=== PATIENT | male | born 1975 | race Caucasian/White ===

== ENCOUNTER 2025-02-21 15:39 | Emergency (ER) | payer MEDICAID ==
[2025-02-21 15:57] VITALS: PULSE 96; RESP 20; TEMP 97
--- NOTE | 2025-02-21 16:07 | ERPHSYRPT ---
- History of Present Illness Time Seen by Provider: 02/21/25 15:44 Source: patient, EMS Patient Subjective Stated Complaint: PT HERE FOR BEE STING TODAY WHILE PUSH MOWING, HE STATES HE IMMEDIATELY TOOK BENDADRYL 50MG, STATES BEED STING TO BACK OF NECK Triage Nursing Assessment: PT ARRIVED PER EMS, ALERT, NO DISTRESS NOTED, HAS REDNESS TO BACK OF NECK, NO SWELLING, RESP EASY, SKIN W/D/P. IV TO LEFT ARM, MOVES ALL EXT WELL Physician History: This is a 49-year-old male who was stung by a hornet over 1 hour ago prior to my evaluation brought in by EMS because he was concerned that has a history of allergic reactions. He states in the past stung by bees he has trouble breathing. Patient took 2 Benadryl immediately after being stung on the back right side of his neck. He has had no shortness of breath. No rash. He has had no typical allergic symptoms. No difficulty breathing or swallowing. Patient is a heavy smoker. Has history of asthma. No wheezing. EMS his vital signs been stable saturations 195% on room air. Allergies/Adverse Reactions: No Known Drug Allergies Allergy (Unverified 02/21/25 15:57) Hx Tetanus, Diphtheria Vaccination/Date Given: No Hx Influenza Vaccination/Date Given: No Hx Pneumococcal Vaccination/Date Given: No Immunizations Up to Date: Yes Travel Risk - International Travel Have you traveled outside of the country in past 3 weeks: No - Emerging Infectious Disease Are you exhibiting symptoms associated with any current EIDs: No - Review of Systems All Other Systems: Reviewed and Negative (As per HPI otherwise negative) - Past Medical History Pertinent Past Medical History: Yes Cardiac History: Hypertension Endocrine Medical History: Diabetes Type II Psycho-Social History: Anxiety, Depression - Past Surgical History Past Surgical History: Yes - Social History Smoking Status: Never smoker Exposure to second hand smoke: No Drug Use: none - Social Determinants of Health Will the patient participate in the screening: Yes Do you worry about a steady place to live?: Yes Do you have any problems with any of the following?: No known problems In the past 12 months,have you had to go without utilities?: No Transportation Issues: Yes Has anyone in your support network made you feel unsafe?: No Have you or anyone in your house had to go w/o enough food: No - Nursing Vital Signs Nursing Vital Signs: Initial Vital Signs Temperature 97.0 F 02/21/25 15:50 Pulse Rate 96 H 02/21/25 15:50 Respiratory Rate 20 02/21/25 15:50 Blood Pressure 114/73 02/21/25 15:50 O2 Sat by Pulse Oximetry 94 L 02/21/25 15:50 Pain Scale Pain Intensity 2 - Physical Exam SpO2: 94 Comments: 02/21/25 16:09 General: Well-nourished well-developed. No apparent distress. Shuffled. Self- admitted history of alcoholism. Clean and sober for 2 days. HEENT: Normocephalic atraumatic no obvious facial or neck deformity or injury. Neck: Supple. No deformity or mass noted. CV: RRR NL Perfusion. No edema Resp: No Respiratory distress or adventitious breath sounds Abd: ND SNT Pigment: No rash. No lesion. No evidence of swelling or difficulty at site of where he was "bit" MSK: No deformity or TTP Neuro: Alert and Edison x4. No gross focal neurologic changes Psych: No SI, HI or grave disability Ordered Tests: Medication Summary Discontinued Medications Generic Name Dose Route Start Last Admin Trade Name Freq PRN Reason Stop Dose Admin Methylprednisolone Sodium 0 mg 02/21/25 16:07 Succinate 125 mg/ Sterile IV 02/21/25 16:08 Water 2 ml STAT ONE - Progress Progress: improved Progress Note: 02/21/25 16:09 Patient fully asymptomatic time evaluation 1 hour and 10 minutes after his "bite" from the hornet. Patient took Benadryl. Has he has an IV already per EMS will give 125 mg of Solu-Medrol. Although I do not feel patient needs at this time this will be given prophylactically. Certain conditions can change or worsen and we have discussed this. He asked for an EpiPen in case he has an allergic reaction I feel this is reasonable. I will also write him for prednisone and Benadryl. The patient's condition was discussed with themselves and/or family members in great detail. Precautions are given and need to return or call 911 immediately for any changes or worsening are discussed. Instructions on patient's condition and noting that conditions can change or worsen and that diagnosis are presumptive and can evolve are discussed. All questions were answered. All concerns addressed at this time - Departure Departure Disposition: Home Clinical Impression: Insect bite Qualifiers: Encounter type: initial encounter Site of insect bite: other part of neck Qualified Code(s): S10.86XA - Insect bite of other specified part of neck, in itial encounter; W57.XXXA - Bitten or stung by nonvenomous insect and other nonvenomous arthropods, initial encounter Condition: Stable Critical Care Time: No Instructions: Insect Bites and Stings (DC) Additional Instructions: You have been evaluated for an emergency medical condition. At this time, given the current history and events presented, the examination conducted and any possible testing you may have had, you have been given a presumptive diagnosis based on the current information is obtained. Your discharge diagnosis is presumptive and not necessarily definitive. Medical conditions present in various stages very often without all the symptoms or findings described in medical literature. Other symptoms, concerns or conditions may arise and your diagnoses may evolve or change and/or your condition could potentially worsen after the time of disposition or discharge. You have been given a presumptive diagnosis and your condition appears to be stable, but your medical issues can change or worsen. If there is worsening of your condition including difficulty breathing, s wallowing, speaking, chest pain or pressure, intractable vomiting, worsening or changing mental status, numbness, tingling or weakness of your body or arms or legs, thoughts or plans of harming yourself or others, or any other concerns, call 911 and/or return immediately to the closest emergency department. It is important you follow-up with your doctor on the next business day. Call your doctor, or the referral provided if you do not have a doctor, when they open to schedule a follow-up appointment in the next 1 or latest 2 days. Please refer to the attached sheet. If you do not have primary care doctor, you can call the [facility] referral line at [phone]. Return immediately if your symptoms worsen or if you are unable to obtain further care. My team and I thank you for choosing the [facility] Emergency Department emergency healthcare needs. We wish you a speedy recovery. Very respectfully, Dr. Geri Edwards M.D. [employer] Board-certified Emergency Physician Prescriptions: Diphenhydramine HCl 25 mg [Benadryl 25 mg Capsule] 50 mg PO Q8H PRN 5 Days #30 PRN Reason: Allergies Prednisone 20 mg [Deltasone 20 mg] 40 mg PO DAILY 5 Days #10 tablet EPINEPHrine [Epipen 2-Kvng] 0.3 mg IJ PER HOUR PRN #1 kit PRN Reason: Allergies
[2025-02-21] MEDS ORDERED: Sterile H2O 10 ml IJ ONE (16:36)
[2025-02-21] MEDS: solu-MEDROL 125 MG, Sterile H2O 10 ml 2 ML IV ONE (16:38)
[2025-02-21 17:07] VITALS: BP 102/72; O2SAT 93
== END 2025-02-21 17:13 | disposition home or self-care (01) ==
LOC: ED 15:39
DX: S10.86XA Insect bite of other specified part of neck, initial encounter (principal); W57.XXXA Bitten or stung by nonvenomous insect and other nonvenomous arthropods, initial encounter; Y93.H2 Activity, gardening and landscaping; Y92.007 Garden or yard of unspecified non-institutional (private) residence as the place of occurrence of the external cause; I10 Essential (primary) hypertension; E11.9 Type 2 diabetes mellitus without complications; Z79.52 Long term (current) use of systemic steroids; Z79.899 Other long term (current) drug therapy; Z59.819 Housing instability, housed unspecified; Z59.82 Transportation insecurity

== ENCOUNTER 2025-02-27 15:04 | Emergency (ER) | payer MEDICAID ==
[2025-02-27 15:17] VITALS: RESP 18; TEMP 98.1
--- NOTE | 2025-02-27 15:26 | ERPHSYRPT ---
- History of Present Illness Physician History: Insect sting, Transported via EMS, the patient was out mowing grass when he was stung by a hornet, he states they came out of the ground and stung him in the left foot, he came very sweaty he did not have any shortness of breath he denied having difficulty swallowing, apparently after calling EMS he was given a dose of epinephrine, he has known history of allergies to bee stings, At the time examination he states having a reaction on his left foot, no other rash in any other location, he feels a bit tired Allergies/Adverse Reactions: No Known Drug Allergies Allergy (Unverified 02/21/25 15:57) Home Medications: Aspirin EC 81 mg [Ecotrin 81 mg] 81 mg PO DAILY 02/27/25 [History] Atorvastatin Calcium 10 mg PO HS 02/27/25 [History] Celecoxib [Celebrex] 200 mg PO DAILY 02/27/25 [History] Epinephrine Epi-Pen [Epipen 0.3 MG Syringe] 0.3 mg IM DAILY PRN PRN 02/27/25 [History] Escitalopram Oxalate [Lexapro] 20 mg PO DAILY 02/27/25 [History] Ferrous Sulfate, Dried [Slow Release Iron] 45 mg PO DAILY 02/27/25 [History] Gabapentin 300 mg PO QID 02/27/25 [History] Hydrochlorothiazide 25 mg [hydroDIURIL 25 MG] 25 mg PO DAILY 02/27/25 [History] Lisinopril 10 mg [Zestril 10 MG] 10 mg PO DAILY 02/27/25 [History] Metformin HCl 500 mg [Glucophage 500 MG] 500 mg PO BIDWM 02/27/25 [History] Multivitamin 1 tab PO DAILY 02/27/25 [History] PANTOPRAZOLE 40 mg Tablet [Protonix 40MG Tablet] 40 mg PO QAM 02/27/25 [H istory] Ropinirole HCl 1 mg PO BID 02/27/25 [History] predniSONE [Prednisone] 20 mg PO DAILY 02/27/25 [History] Hx Tetanus, Diphtheria Vaccination/Date Given: No Hx Influenza Vaccination/Date Given: No Hx Pneumococcal Vaccination/Date Given: No Travel Risk - Emerging Infectious Disease Are you exhibiting symptoms associated with any current EIDs: No - Past Medical History Pertinent Past Medical History: Yes Cardiac History: Hypertension Endocrine Medical History: Diabetes Type II Psycho-Social History: Anxiety, Depression - Past Surgical History Past Surgical History: Yes - Social History Smoking Status: Never smoker Exposure to second hand smoke: No Drug Use: none - Social Determinants of Health Will the patient participate in the screening: Yes Do you worry about a steady place to live?: Yes In the past 12 months,have you had to go without utilities?: No Transportation Issues: Yes Has anyone in your support network made you feel unsafe?: No Have you or anyone in your house had to go w/o enough food: No - Nursing Vital Signs Nursing Vital Signs: Initial Vital Signs Temperature 98.1 F 02/27/25 15:05 Pulse Rate 128 H 02/27/25 15:05 Respiratory Rate 18 02/27/25 15:05 Blood Pressure 113/69 02/27/25 15:05 O2 Sat by Pulse Oximetry 99 02/27/25 15:05 Pain Scale Pain Intensity 4 - Physical Exam General Appearance: no apparent distress, alert Eye Exam: PERRL/EOMI, eyes nml inspection Ears, Nose, Throat Exam: normal ENT inspection, TMs normal, pharynx normal, moist mucous membranes Neck Exam: normal inspection, non-tender, supple, full range of motion Respiratory Exam: normal breath sounds, lungs clear, No respiratory distress Cardiovascular Exam: regular rate/rhythm, normal heart sounds, normal peripheral pulses Gastrointestinal/Abdomen Exam: soft, normal bowel sounds, No tenderness, No mass Back Exam: normal inspection, normal range of motion, No CVA tenderness, No vertebral tenderness Extremity Exam: normal inspection, normal range of motion, pelvis stable Neurologic Exam: alert, oriented x 3, cooperative, normal mood/affect, nml cerebellar function, nml station & gait, sensation nml, No motor deficits Skin Exam: normal color, warm, dry, other (Sting site left lateral foot with localized reaction of erythema and soft tissue swelling), No rash Lymphatic Exam: No adenopathy SpO2: 90 Ordered Tests: Medication Summary Generic Name Dose Route Start Last Admin Trade Name Freq PRN Reason Stop Dose Admin Sodium Chloride 1,000 mls @ 999 mls/hr 02/27/25 15:22 02/27/25 15:31 Sodium Chloride 0.9% 1000 Ml IV 02/27/25 16:22 999 mls/hr .Q1H1M STA Administration Discontinued Medications Generic Name Dose Route Start Last Admin Trade Name Jeremíasq PRN Reason Stop Dose Admin Methylprednisolone Sodium 0 mg 02/27/25 15:22 02/27/25 15:32 Succinate 125 mg/ Sterile IV 02/27/25 15:23 125 mg Water 10 ml STAT ONE Administration Diphenhydramine HCl 25 mg 02/27/25 15:22 02/27/25 15:34 Diphenhydramine Hcl 50 Mg/Ml Vial IV 02/27/25 15:23 25 mg STAT ONE Administration Diphenhydramine HCl Confirm 02/27/25 15:28 Diphenhydramine Hcl 50 Mg/Ml Vial Administered 02/27/25 15:29 Dose 50 mg .ROUTE .STK-MED ONE Famotidine 20 mg 02/27/25 15:22 02/27/25 15:34 Famotidine 20 Mg Tablet PO 02/27/25 15:23 20 mg STAT ONE Administration Famotidine Confirm 02/27/25 15:28 Famotidine 20 Mg Tablet Administered 02/27/25 15:29 Dose 20 mg .ROUTE .STK-MED ONE Sodium Chloride Confirm 02/27/25 15:29 Sodium Chloride 0.9% 1000 Ml Administered 02/27/25 15:30 Dose 1,000 mls @ ud .ROUTE .STK-MED ONE Methylprednisolone Sodium Succinate Confirm 02/27/25 15:29 Methylprednis Sod Succ 125 Mg/2 Ml Vial Administered 02/27/25 15:30 Dose 125 mg .ROUTE .STK-MED ONE Sterile Water Confirm 02/27/25 15:28 Water For Injection,Sterile 10 Ml Vial Administered 02/27/25 15:29 Dose 10 ml IJ .STK-MED ONE - Progress Progress Note: 02/27/25 16:10 no JORGE, feels tired, requesting discharge - Departure Departure Disposition: Home Clinical Impression: Insect sting Qualifiers: Encounter type: initial encounter Injury intent: accidental or unintentional Qualified Code(s): T63.481A - Toxic effect of venom of other arthropod, accidental (unintentional), initial encounter Condition: Fair Critical Care Time: No Referrals: JAZZMINE CASANOVA MD [Primary Care Provider, ENDOCRINOLOGY] - Follow up with PCP 4 days Instructions: Insect bites and stings - ED discharge instructions Prescriptions: Betamethasone Valerate 1 gm TP BID #15 applic Loratadine 10 mg [Claritin 10 mg] 10 mg PO DAILY #10 tablet Prednisone 20 mg [Deltasone 20 mg] 20 mg PO DAILY #3 tablet
[2025-02-27] MEDS ORDERED: BENADRYL 50 MG/ML ONE (15:28)
[2025-02-27] MEDS ORDERED: Pepcid 20 MG ONE (15:28)
[2025-02-27] MEDS ORDERED: Sterile H2O 10 ml IJ ONE (15:28)
[2025-02-27] MEDS: solu-MEDROL 125 MG, Sterile H2O 10 ml 10 ML IV ONE (15:32)
[2025-02-27] MEDS: BENADRYL 50 MG/ML IV ONE (15:34)
[2025-02-27] MEDS: Pepcid 20 MG PO ONE (15:34)
[2025-02-27 16:39] VITALS: BP 128/81; PULSE 69; O2SAT 98
== END 2025-02-27 16:40 | disposition home or self-care (01) ==
LOC: ED 15:04
DX: T63.461A Toxic effect of venom of wasps, accidental (unintentional), initial encounter (principal); R61 Generalized hyperhidrosis; Y92.007 Garden or yard of unspecified non-institutional (private) residence as the place of occurrence of the external cause; I10 Essential (primary) hypertension; E11.9 Type 2 diabetes mellitus without complications; Z79.84 Long term (current) use of oral hypoglycemic drugs; Z79.899 Other long term (current) drug therapy